=== PATIENT | male | born 1960 | race Caucasian/White ===

== ENCOUNTER 2018-10-13 05:17 | Emergency (ER) | payer BC, OTHER ==
[2018-10-13] MEDS ORDERED: Sodium Chloride 0.9% 10 ML Syringe FLUSH PRN (05:34)
--- NOTE | 2018-10-13 05:42 | EDM.PDOC ---
<Calderon Kim - Last Filed: 10/13/18 09:07> ED HPI GENERAL MEDICAL PROBLEM - General Stated Complaint: ABD PAIN Time Seen by Provider: 10/13/18 05:17 - Related Data Allergies Allergy/AdvReac Type Severity Reaction Status Date / Time morphine Allergy Cannot Verified 10/13/18 05:38 Remember Home Meds: Home Meds Hydrocodone/Acetaminophen [Hydrocodon-Acetaminophen 5-325] 1 each PO Q4HR PRN # 16 tablet 10/13/18 [Rx] Course - Vital Signs Text/Narrative:: Repeat history and abdominal exam patient is alert, stoic, states he had normally 2 bowel movements to 3 bowel movements a day without have one yesterday. He had an episode of pain Parfait 6- 7 years ago similar to this. At that time 19 excessive fatty foods. He did not have fatty foods yesterday. Patient denies fever. Just before the CAT scan was to be done patient vomited the contrast. She denies fever. 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 Abdominal exam bowel sounds normal. No distention, he has a variable clinical response to evaluation for peritonitis initially: Carnett sign was negative -most of the abdominal pain occurred with sitting up and the rectus abdominal muscles were tender. and he had moderate guarding upper quadrants. Then repeat examination demonstrated mild rebound bilateral lower quadrants. No heel tap rebound noted. No CVA percussion tenderness. Genital exam negative. No evidence for hernia. [address] reading: Last Recorded V/S: Last Vital Signs Temp 36.3 C 10/13/18 07:52 Pulse 63 10/13/18 09:25 Resp 18 10/13/18 09:25 BP 118/67 10/13/18 09:25 Pulse Ox 100 10/13/18 09:25 - Orders/Labs/Meds Labs: Laboratory Tests 10/13/18 10/13/18 10/13/18 Range/Units 05:46 05:46 05:46 WBC 9.9 (4.5-12.0) X10-3/uL RBC 4.16 L (4.30-5.75) x10(6)uL Hgb 12.8 (11.5-15.5) g/dL Hct 37.4 (30.0-51.3) % MCV 90.0 (80-96) fL MCH 30.8 (27.7-33.6) pg MCHC 34.2 (32.2-35.4) g/dL RDW 13.2 (11.5-15.5) % Plt Count 232 (125-369) X10(3)uL MPV 8.4 (7.4-10.4) fL Neut % (Auto) 83.2 H (46-82) % Lymph % (Auto) 10.1 L (13-37) % [place] % (Auto) 4.4 (4-12) % Eos % (Auto) 2 (1.0-5.0) % Baso % (Auto) 0 (0-2) % Neut # (Auto) 8.3 (1.6-8.3) # Lymph # (Auto) 1.0 (0.6-5.0) # [place] # (Auto) 0.4 (0.0-1.3) # Eos # (Auto) 0.2 (0.0-0.8) # Baso # (Auto) 0.0 (0.0-0.2) # PT 9.9 (8.7-11.1) INR 1.02 (0.89-1.13) Sodium 141 (135-145) mmol/L Potassium 3.9 (3.5-5.3) mmol/L Chloride 103 (100-110) mmol/L Carbon Dioxide 30 (21-32) mmol/L BUN 13 (7-18) mg/dL Creatinine 1.3 (0.70-1.30) mg/dL Est Cr Clr Drug Dosing 57.26 mL/min Estimated GFR (MDRD) 57 L (>60) BUN/Creatinine Ratio 10.0 (9-20) Glucose 170 H (80-116) mg/dL Lactic Acid (0.4-2.2) mmol/L Calcium 8.8 (8.6-10.2) mg/dL Total Bilirubin 0.6 (0.1-1.3) mg/dL Direct Bilirubin 0.16 (0.10-0.20) mg/dL AST 17 (5-25) IU/L ALT 20 (12-36) U/L Alkaline Phosphatase 84 (56-112) IU/L Total Protein 7.5 (6.0-8.0) g/dL Albumin 3.7 (3.5-5.2) g/dL Amylase 61 (25-115) U/L 10/13/18 Range/Units 08:05 WBC (4.5-12.0) X10-3/uL RBC (4.30-5.75) x10(6)uL Hgb (11.5-15.5) g/dL Hct (30.0-51.3) % MCV (80-96) fL MCH (27.7-33.6) pg MCHC (32.2-35.4) g/dL RDW (11.5-15.5) % Plt Count (125-369) X10(3)uL MPV (7.4-10.4) fL Neut % (Auto) (46-82) % Lymph % (Auto) (13-37) % [place] % (Auto) (4-12) % Eos % (Auto) (1.0-5.0) % Baso % (Auto) (0-2) % Neut # (Auto) (1.6-8.3) # Lymph # (Auto) (0.6-5.0) # [place] # (Auto) (0.0-1.3) # Eos # (Auto) (0.0-0.8) # Baso # (Auto) (0.0-0.2) # PT (8.7-11.1) INR (0.89-1.13) Sodium (135-145) mmol/L Potassium (3.5-5.3) mmol/L Chloride (100-110) mmol/L Carbon Dioxide (21-32) mmol/L BUN (7-18) mg/dL Creatinine (0.70-1.30) mg/dL Est Cr Clr Drug Dosing mL/min Estimated GFR (MDRD) (>60) BUN/Creatinine Ratio (9-20) Glucose (80-116) mg/dL Lactic Acid 0.7 (0.4-2.2) mmol/L Calcium (8.6-10.2) mg/dL Total Bilirubin (0.1-1.3) mg/dL Direct Bilirubin (0.10-0.20) mg/dL AST (5-25) IU/L ALT (12-36) U/L Alkaline Phosphatase (56-112) IU/L Total Protein (6.0-8.0) g/dL Albumin (3.5-5.2) g/dL Amylase (25-115) U/L Meds: Medications Discontinued Medications Generic Name Dose Route Start Last Admin Trade Name Freq PRN Reason Stop Dose Admin Diatrizoate Meglum/Diatrizoate Sod 30 ml 10/13/18 07:15 10/13/18 07:23 Gastrografin 37% PO 15 ml . DIRECTED YUAN Administration Hydromorphone HCl 0.5 mg 10/13/18 05:47 10/13/18 06:03 Dilaudid IVPUSH 10/13/18 05:48 0.5 mg ONETIME STA Administration Sodium Chloride 1,000 mls @ 999 mls/hr 10/13/18 06:12 10/13/18 06:18 Normal Saline IV 10/13/18 07:12 999 mls/hr .BOLUS ONE Administration Sodium Chloride 1,000 mls @ 999 mls/hr 10/13/18 07:43 10/13/18 07:44 Normal Saline IV 10/13/18 08:43 999 mls/hr .BOLUS ONE Administration Iopamidol 75 ml 10/13/18 07:13 10/13/18 07:23 Isovue-370 (76%) IV 10/13/18 07:14 75 ml ONETIME ONE Administration Ondansetron HCl 8 mg 10/13/18 06:59 10/13/18 07:02 Zofran IVPUSH 10/13/18 07:00 8 mg ONETIME ONE Administration Sodium Chloride 10 ml 10/13/18 05:34 10/13/18 06:03 Saline Flush FLUSH 10 ml ASDIRECTED PRN Administration Keep Vein Open Departure - Departure Time of Disposition: 07:50 (CAT scan reveals an ileitis with thickening of the ileal wall very suggestive of Crohn's. Further discussion patient his maternal grandfather had Crohn's. Patient's pain 03/24. Reexamination of the abdomen he has verbal response to outpatient but most notable moderated rebound and guarding noted. No history of diarrhea. His seventh usually 2-3 stools a day in the morning but he did not have that today. Patient's status was discussed with Dr. Geri Burris. My inclination is to admt the patient to observation but deferred to Dr. Burris discretion. After patient was seen by Dr. Burris, consultation obtainedwith Dr Smalls, patient did not want this to the hospital. Colonoscopy to be arranged another date. Recent dispensed pain medicines and follow-up with Dr. Johnson.Hospital currently not available for 2 weeks. If in the interval patient has problems to be seen by Dr. Burris gradually increase diet as tolerated. Forego using budesonide until diaagnosis of Crohn"s is made. Lactate was normal which just no immediate critical obstruction or abnormality) Disposition: Home, Self-Care 01 Condition: Fair Clinical Impression: Crohn's disease involving terminal ileum Abdominal pain Qualifiers: Abdominal location: generalized Qualified Code(s): R10.84 - Generalized abdominal pain - Discharge Information *PRESCRIPTION DRUG MONITORING PROGRAM REVIEWED*: Not Applicable *COPY OF PRESCRIPTION DRUG MONITORING REPORT IN PATIENT WU: Not Applicable Prescriptions: Hydrocodone/Acetaminophen [Hydrocodon-Acetaminophen 5-325] 1 each PO Q4HR PRN # 16 tablet PRN Reason: Pain Instructions: Ondansetron injection, Hydromorphone injection, Abdominal Pain, Adult, [id number] Referrals: Camden Child MD [Primary Care Provider] - Forms: ED Department Discharge Additional Instructions: Follow-up with Dr. Child in 2 weeks at clinic, if he is not available to see Dr. Burris. Vicodin for pain as needed. Gradually increase your diet as tolerated. <Tj Fine - Last Filed: 10/14/18 07:47> ED HPI GENERAL MEDICAL PROBLEM - General Source of Information: Reports: Patient History Limitations: Reports: No Limitations - History of Present Illness INITIAL COMMENTS - FREE TEXT/NARRATIVE: 58 y.o.w.m came to the ed this am because of sudden onset of abd. pain (02/22) at 3 am. located at his periumbilical area. H/O bilateral inguinal hernia repair > 17 years ago. No trauma, Last BM last night, nl, no blood in stool. No dysuria, No H/o enlarged prostate, No N/V, no C/P no other acute medical issues BP 137/77 RR 18 Pulse ox 100% on RA Temp 36.7 Pulse 87 Onset Date: 10/13/18 Onset Time: 03:00 Duration: Hour(s):, Getting Worse, Intermittent Location: Reports: Abdomen (periumbilical) Quality: Reports: Ache, Dull, Pressure, Stabbing, Throbbing Severity: Moderate Improves with: Reports: Rest Worsens with: Reports: Movement Context: Reports: Other mid lower abd Pain Score (Numeric/FACES): 6 ED ROS GENERAL - Review of Systems Review Of Systems: See Below Constitutional: Reports: No Symptoms HEENT: Reports: No Symptoms Respiratory: Reports: No Symptoms Cardiovascular: Reports: No Symptoms Endocrine: Reports: No Symptoms GI/Abdominal: Reports: Abdominal Pain : Reports: No Symptoms Musculoskeletal: Reports: No Symptoms Skin: Reports: No Symptoms Neurological: Reports: No Symptoms Psychiatric: Reports: No Symptoms Hematologic/Lymphatic: Reports: No Symptoms Immunologic: Reports: No Symptoms ED EXAM, GI/ABD - Physical Exam Exam: See Below Exam Limited By: No Limitations General Appearance: Alert, WD/WN, Moderate Distress Eyes: Bilateral: Normal Appearance Ears: Normal External Exam Nose: Normal Inspection, Normal Mucosa Throat/Mouth: Normal Voice, No Airway Compromise, Other (poor dentition) Head: Atraumatic, Normocephalic Neck: Normal Inspection, Supple, Non-Tender, Full Range of Motion Respiratory/Chest: No Respiratory Distress, Lungs Clear, Normal Breath Sounds, No Accessory Muscle Use, Chest Non-Tender Cardiovascular: Normal Peripheral Pulses, Regular Rate, Rhythm, No Edema, No Gallop, No Rub GI/Abdominal Exam: Guarding, Rigid, Rebound, Tender, Abnormal Bowel Sounds (Male) Exam: No Hernia Rectal (Males) Exam: Deferred Back Exam: Normal Inspection, Full Range of Motion Extremities: Normal Inspection, Normal Range of Motion Neurological: Alert, Oriented, CN II-XII Intact, Normal Cognition, Normal Gait Psychiatric: Normal Affect, Normal Mood Skin Exam: Warm, Dry, Intact, Normal Color, No Rash Lymphatic: No Adenopathy Course - Vital Signs Text/Narrative:: 58 y.o.w.m came to the ed this am because of sudden onset of abd. pain (02/22) at 3 am. located at his periumbilical area. H/O bilateral inguinal hernia repair > 17 years ago. No trauma. Last BM last night, nl consistency, no blood in stool, stool was soft. No dysuria, No H/o enlarged prostate, No N/V, no C/P no other acute medical issues BP 137/77 RR 18 Pulse ox 100% on RA Temp 36.7 Pulse 87 PE: WNWD W M with periumbilical pain with guarding and rebound, severely diminished BS, Bladder scanner showed 18 cc of urine in his bladder Imaging: Abd flat/upright: Nonspecific BGP, CT abd/pelvis with I.V/PO contrast : pending Labs: CBC nl except RBC 4.16, Neutros 83.5 %, BMP: N: except GFR 57 Glc 130 UA : Pending Impression: Periumbilical pain, guarding, rigidity and rebound Tx: NS. Dilaudid, Zofran Reexam: Improved 7 am: Pt was signed out to Dr. Kim due to shift changes pending CT abdomen/pelvis and UA results Last Recorded V/S: Last Vital Signs Temp 36.3 C 10/13/18 07:52 Pulse 63 10/13/18 09:25 Resp 18 10/13/18 09:25 BP 118/67 10/13/18 09:25 Pulse Ox 100 10/13/18 09:25 - Orders/Labs/Meds Labs: Laboratory Tests 10/13/18 10/13/18 10/13/18 Range/Units 05:46 05:46 05:46 WBC 9.9 (4.5-12.0) X10-3/uL RBC 4.16 L (4.30-5.75) x10(6)uL Hgb 12.8 (11.5-15.5) g/dL Hct 37.4 (30.0-51.3) % MCV 90.0 (80-96) fL MCH 30.8 (27.7-33.6) pg MCHC 34.2 (32.2-35.4) g/dL RDW 13.2 (11.5-15.5) % Plt Count 232 (125-369) X10(3)uL MPV 8.4 (7.4-10.4) fL Neut % (Auto) 83.2 H (46-82) % Lymph % (Auto) 10.1 L (13-37) % [place] % (Auto) 4.4 (4-12) % Eos % (Auto) 2 (1.0-5.0) % Baso % (Auto) 0 (0-2) % Neut # (Auto) 8.3 (1.6-8.3) # Lymph # (Auto) 1.0 (0.6-5.0) # [place] # (Auto) 0.4 (0.0-1.3) # Eos # (Auto) 0.2 (0.0-0.8) # Baso # (Auto) 0.0 (0.0-0.2) # PT 9.9 (8.7-11.1) INR 1.02 (0.89-1.13) Sodium 141 (135-145) mmol/L Potassium 3.9 (3.5-5.3) mmol/L Chloride 103 (100-110) mmol/L Carbon Dioxide 30 (21-32) mmol/L BUN 13 (7-18) mg/dL Creatinine 1.3 (0.70-1.30) mg/dL Est Cr Clr Drug Dosing 57.26 mL/min Estimated GFR (MDRD) 57 L (>60) BUN/Creatinine Ratio 10.0 (9-20) Glucose 170 H (80-116) mg/dL Lactic Acid (0.4-2.2) mmol/L Calcium 8.8 (8.6-10.2) mg/dL Total Bilirubin 0.6 (0.1-1.3) mg/dL Direct Bilirubin 0.16 (0.10-0.20) mg/dL AST 17 (5-25) IU/L ALT 20 (12-36) U/L Alkaline Phosphatase 84 (56-112) IU/L Total Protein 7.5 (6.0-8.0) g/dL Albumin 3.7 (3.5-5.2) g/dL Amylase 61 (25-115) U/L 10/13/18 Range/Units 08:05 WBC (4.5-12.0) X10-3/uL RBC (4.30-5.75) x10(6)uL Hgb (11.5-15.5) g/dL Hct (30.0-51.3) % MCV (80-96) fL MCH (27.7-33.6) pg MCHC (32.2-35.4) g/dL RDW (11.5-15.5) % Plt Count (125-369) X10(3)uL MPV (7.4-10.4) fL Neut % (Auto) (46-82) % Lymph % (Auto) (13-37) % [place] % (Auto) (4-12) % Eos % (Auto) (1.0-5.0) % Baso % (Auto) (0-2) % Neut # (Auto) (1.6-8.3) # Lymph # (Auto) (0.6-5.0) # [place] # (Auto) (0.0-1.3) # Eos # (Auto) (0.0-0.8) # Baso # (Auto) (0.0-0.2) # PT (8.7-11.1) INR (0.89-1.13) Sodium (135-145) mmol/L Potassium (3.5-5.3) mmol/L Chloride (100-110) mmol/L Carbon Dioxide (21-32) mmol/L BUN (7-18) mg/dL Creatinine (0.70-1.30) mg/dL Est Cr Clr Drug Dosing mL/min Estimated GFR (MDRD) (>60) BUN/Creatinine Ratio (9-20) Glucose (80-116) mg/dL Lactic Acid 0.7 (0.4-2.2) mmol/L Calcium (8.6-10.2) mg/dL Total Bilirubin (0.1-1.3) mg/dL Direct Bilirubin (0.10-0.20) mg/dL AST (5-25) IU/L ALT (12-36) U/L Alkaline Phosphatase (56-112) IU/L Total Protein (6.0-8.0) g/dL Albumin (3.5-5.2) g/dL Amylase (25-115) U/L Meds: Medications Discontinued Medications Generic Name Dose Route Start Last Admin Trade Name Freq PRN Reason Stop Dose Admin Diatrizoate Meglum/Diatrizoate Sod 30 ml 10/13/18 07:15 10/13/18 07:23 Gastrografin 37% PO 15 ml . DIRECTED YUAN Administration Hydromorphone HCl 0.5 mg 10/13/18 05:47 10/13/18 06:03 Dilaudid IVPUSH 10/13/18 05:48 0.5 mg ONETIME STA Administration Sodium Chloride 1,000 mls @ 999 mls/hr 10/13/18 06:12 10/13/18 06:18 Normal Saline IV 10/13/18 07:12 999 mls/hr .BOLUS ONE Administration Sodium Chloride 1,000 mls @ 999 mls/hr 10/13/18 07:43 10/13/18 07:44 Normal Saline IV 10/13/18 08:43 999 mls/hr .BOLUS ONE Administration Iopamidol 75 ml 10/13/18 07:13 10/13/18 07:23 Isovue-370 (76%) IV 10/13/18 07:14 75 ml ONETIME ONE Administration Ondansetron HCl 8 mg 10/13/18 06:59 10/13/18 07:02 Zofran IVPUSH 10/13/18 07:00 8 mg ONETIME ONE Administration Sodium Chloride 10 ml 10/13/18 05:34 10/13/18 06:03 Saline Flush FLUSH 10 ml ASDIRECTED PRN Administration Keep Vein Open
[2018-10-13] MEDS ORDERED: HYDROmorphone 2 MG/ML SDV IVPUSH STA (05:47)
[2018-10-13] MEDS ORDERED: Sodium Chloride 0.9% 1,000 ML IV ONE ×2 (06:12→07:43)
[2018-10-13] MEDS ORDERED: Ondansetron 4 MG/2 ML SDV IVPUSH ONE (06:59)
[2018-10-13] MEDS ORDERED: Iopamidol 755 Mg/ML 75 ML Bottle IV ONE (07:13)
[2018-10-13] MEDS ORDERED: Diatrizoate Meglumine/Diatrizoate Sodium 37% 30 ML Bottle PO SCH (07:15)
--- NOTE | 2018-10-13 09:07 | PCM.CONS ---
H&P History of Present Illness - General Date of Service: 10/13/18 Source of Information: Patient - History of Present Illness Initial Comments - Free Text/Narative: 58 yo wm who awoke with a complaint of lower abd pain. [place] bloated as well as some pain. No fever chills, usually has a bm in the am but did not do so today. CT scan ? Crohn's in terminal ileum. Denies diarrhea as well. Has a family hx of Crohns with grandfather. mid lower abd Pain Score (Numeric/FACES): 3 - Related Data Allergies/Adverse Reactions: Allergies Allergy/AdvReac Type Severity Reaction Status Date / Time morphine Allergy Cannot Verified 10/13/18 05:38 Remember Home Medications: Home Meds NK [No Known Home Meds] 10/13/18 [History] Past Medical History - Past Health History Medical/Surgical History: Denies Medical/Surgical History - Past Surgical History GI Surgical History: Reports: Hernia, Inguinal (bilateral) Musculoskeletal Surgical History: Reports: Shoulder Surgery Social & Family History - Family History Family Medical History: Noncontributory - Tobacco Use Smoking Status *Q: Former Smoker Used Tobacco, but Quit: Yes Month/Year Tobacco Last Used: 360 - Caffeine Use Caffeine Use: Reports: None - Recreational Drug Use Recreational Drug Use: No H&P Review of Systems - Review of Systems: Review Of Systems: See Below General: Denies: Fever, Chills Pulmonary: Reports: No Symptoms Cardiovascular: Reports: No Symptoms Gastrointestinal: Reports: Abdominal Pain. Denies: Constipation, Diarrhea, Stool Incontinence, Vomiting Genitourinary: Reports: No Symptoms Musculoskeletal: Reports: No Symptoms Skin: Reports: No Symptoms Exam - Exam Exam: See Below - Vital Signs Vital Signs: Last Vital Signs Temp 97.4 F 10/13/18 07:52 Pulse 58 L 10/13/18 07:52 Resp 18 10/13/18 07:52 BP 123/68 10/13/18 07:52 Pulse Ox 99 10/13/18 07:52 Weight: 68.039 kg - Exam General: Alert, Oriented HEENT: PERRLA, Conjunctiva Clear, EOMI, Posterior Pharynx Clear, TMs Clear Lungs: Clear to Auscultation, Normal Respiratory Effort Cardiovascular: Regular Rate, Regular Rhythm GI/Abdominal Exam: Normal Bowel Sounds, Soft, Tender (very mild tenderness in lower abdomne ) Back Exam: Normal Inspection, Full Range of Motion - Patient Data Lab Results Last 24 hrs: Laboratory Results - last 24 hr 10/13/18 10/13/18 10/13/18 Range/Units 05:46 05:46 05:46 WBC 9.9 (4.5-12.0) X10-3/uL RBC 4.16 L (4.30-5.75) x10(6)uL Hgb 12.8 (11.5-15.5) g/dL Hct 37.4 (30.0-51.3) % MCV 90.0 (80-96) fL MCH 30.8 (27.7-33.6) pg MCHC 34.2 (32.2-35.4) g/dL RDW 13.2 (11.5-15.5) % Plt Count 232 (125-369) X10(3)uL MPV 8.4 (7.4-10.4) fL Neut % (Auto) 83.2 H (46-82) % Lymph % (Auto) 10.1 L (13-37) % [place] % (Auto) 4.4 (4-12) % Eos % (Auto) 2 (1.0-5.0) % Baso % (Auto) 0 (0-2) % Neut # (Auto) 8.3 (1.6-8.3) # Lymph # (Auto) 1.0 (0.6-5.0) # [place] # (Auto) 0.4 (0.0-1.3) # Eos # (Auto) 0.2 (0.0-0.8) # Baso # (Auto) 0.0 (0.0-0.2) # PT 9.9 (8.7-11.1) INR 1.02 (0.89-1.13) Sodium 141 (135-145) mmol/L Potassium 3.9 (3.5-5.3) mmol/L Chloride 103 (100-110) mmol/L Carbon Dioxide 30 (21-32) mmol/L BUN 13 (7-18) mg/dL Creatinine 1.3 (0.70-1.30) mg/dL Est Cr Clr Drug Dosing 57.26 mL/min Estimated GFR (MDRD) 57 L (>60) BUN/Creatinine Ratio 10.0 (9-20) Glucose 170 H (80-116) mg/dL Lactic Acid (0.4-2.2) mmol/L Calcium 8.8 (8.6-10.2) mg/dL Total Bilirubin 0.6 (0.1-1.3) mg/dL Direct Bilirubin 0.16 (0.10-0.20) mg/dL AST 17 (5-25) IU/L ALT 20 (12-36) U/L Alkaline Phosphatase 84 (56-112) IU/L Total Protein 7.5 (6.0-8.0) g/dL Albumin 3.7 (3.5-5.2) g/dL Amylase 61 (25-115) U/L 10/13/18 Range/Units 08:05 WBC (4.5-12.0) X10-3/uL RBC (4.30-5.75) x10(6)uL Hgb (11.5-15.5) g/dL Hct (30.0-51.3) % MCV (80-96) fL MCH (27.7-33.6) pg MCHC (32.2-35.4) g/dL RDW (11.5-15.5) % Plt Count (125-369) X10(3)uL MPV (7.4-10.4) fL Neut % (Auto) (46-82) % Lymph % (Auto) (13-37) % [place] % (Auto) (4-12) % Eos % (Auto) (1.0-5.0) % Baso % (Auto) (0-2) % Neut # (Auto) (1.6-8.3) # Lymph # (Auto) (0.6-5.0) # [place] # (Auto) (0.0-1.3) # Eos # (Auto) (0.0-0.8) # Baso # (Auto) (0.0-0.2) # PT (8.7-11.1) INR (0.89-1.13) Sodium (135-145) mmol/L Potassium (3.5-5.3) mmol/L Chloride (100-110) mmol/L Carbon Dioxide (21-32) mmol/L BUN (7-18) mg/dL Creatinine (0.70-1.30) mg/dL Est Cr Clr Drug Dosing mL/min Estimated GFR (MDRD) (>60) BUN/Creatinine Ratio (9-20) Glucose (80-116) mg/dL Lactic Acid 0.7 (0.4-2.2) mmol/L Calcium (8.6-10.2) mg/dL Total Bilirubin (0.1-1.3) mg/dL Direct Bilirubin (0.10-0.20) mg/dL AST (5-25) IU/L ALT (12-36) U/L Alkaline Phosphatase (56-112) IU/L Total Protein (6.0-8.0) g/dL Albumin (3.5-5.2) g/dL Amylase (25-115) U/L Result Diagrams: 10/13/18 05:46 10/13/18 05:46 Ashok Results Last 24 hrs: Microbiology 10/13/18 08:55 Stool Occult Blood (ASHOK) - Final Stool / Feces NEGATIVE OCCULT BLOOD Consult PN Assessment/Plan Procedures: Procedures ASSAY OF AMYLASE (09/14/13) ASSAY OF ETHANOL (09/14/13) BLOOD TYPING SEROLOGIC ABO (09/14/13) BLOOD TYPING SEROLOGIC RH(D) (09/14/13) CHEST X-RAY 1 VIEW FRONTAL (09/14/13) COMPLETE CBC W/AUTO DIFF WBC (09/14/13) COMPREHEN METABOLIC PANEL (09/14/13) CT HEAD/BRAIN W/O DYE (09/14/13) CT NECK SPINE W/O DYE (09/14/13) EMERGENCY DEPT VISIT (09/14/13) OCCULT BLD FECES 1-3 TESTS (09/14/13) PROTHROMBIN TIME (09/14/13) RBC ANTIBODY SCREEN (09/14/13) ROUTINE VENIPUNCTURE (09/14/13) THROMBOPLASTIN TIME PARTIAL (09/14/13) URINALYSIS AUTO W/O SCOPE (09/14/13) X-RAY EXAM OF LOWER LEG (09/14/13) X-RAY EXAM OF PELVIS (09/14/13) (1) Abdominal pain SNOMED Code(s): 43492398 Code(s): R10.9 - UNSPECIFIED ABDOMINAL PAIN Current Visit: Yes Qualifiers: Abdominal location: generalized Qualified Code(s): R10.84 - Generalized abdominal pain Problem List Initiated/Reviewed/Updated: Yes Plan: will need a c scope and it appears that it could be set up as an outpt. does not appear to need to be admitted. have follow up to set up scope as an outpt.
== END 2018-10-13 09:31 | disposition home or self-care (01) ==
LOC: FB.ED 05:17 → UNDOADMOB 08:18 → FB.MS 08:18 → FB.ED 09:31
DX: R10.33 Periumbilical pain (principal); R10.84 Generalized abdominal pain
CPT/HCPCS: 36415; 74019; 74177; 80048; 80076; 82150; 82272; 83605; 85025; 85610; 96361; 96374; 96375; 99285; J1170; J2405; J7030; Q9963; Q9967

== ENCOUNTER 2018-10-30 07:18 | Day surgery (SDC) | payer BC ==
[~2018-10-30 07:18] MED LIST: Lactated Ringers 1,000 ML IV SCH
[2018-10-30] MEDS ORDERED: Lidocaine 1% 30 ML SDV ONE (07:19)
[2018-10-30] MEDS ORDERED: Ondansetron 4 MG/2 ML SDV IVPUSH ONE (07:19)
[2018-10-30] MEDS ORDERED: Propofol 200 MG/20 ML SDV IV ONE (07:19)
--- NOTE | 2018-10-30 10:04 | PCM.OPNOTE ---
- General Post-Op/Procedure Note Date of Surgery/Procedure: 10/30/18 Operative Procedure(s): c scope with bx Findings: ascending colon polyp normal appearing terminal ileum Pre Op Diagnosis: hx of abdominal pain Post-Op Diagnosis: ascending colon polyp. normal appearing terminal ileum Anesthesia Technique: MAC Primary Surgeon: Chao Smalls Anesthesia Provider: Parmjit Adorno Pathology: ascending colon polyp Complications: None Condition: Good Free Text/Narrative:: see dictation
--- NOTE | 2018-10-30 13:00 | OR ---
DATE OF OPERATION: 10/30/2018 SURGEON: Chao Smalls MD PROCEDURE PERFORMED: Colonoscopy with cold forceps biopsy. PREOPERATIVE DIAGNOSES: History of lower abdominal pain and questionable enteritis on CT scan. POSTOPERATIVE DIAGNOSES: Normal-appearing terminal ileum and polyp of the ascending colon. INDICATIONS FOR PROCEDURE: This is a 58-year-old white male who presented to the emergency department last week with those noted complaints. Subsequent findings were noted on CT scan. He was offered and accepted a colonoscopy. DESCRIPTION OF OPERATION: After an excellent IV sedation was administered, digital rectal exam was performed. No marked abnormality was noted. Flexible colonoscope was inserted and advanced to the cecum without difficulty. The prep was excellent. The following findings were noted. The terminal ileum was intubated. No marked abnormality was noted. Biopsies were taken due to the CT scan findings. Ascending colon, small polypoid lesion biopsied with cold biopsy forceps and sent for permanent. Transverse colon, unremarkable. Descending colon, unremarkable. Sigmoid and rectum, unremarkable. The colon was deflated as the scope was removed. The patient tolerated the procedure well and was taken to recovery in good condition. Results by letter. /[id number] /MODL
== END 2018-10-30 11:00 | disposition home or self-care (01) ==
LOC: FB.SDS 07:18
PROVIDERS: ATTEND Surgery
DX: R10.30 Lower abdominal pain, unspecified (principal); D12.2 Benign neoplasm of ascending colon; K63.5 Polyp of colon; Z87.891 Personal history of nicotine dependence; Z79.899 Other long term (current) drug therapy; Z88.5 Allergy status to narcotic agent
CPT/HCPCS: 45380; 88305; J2001; J2405; J2704; J7120

== ENCOUNTER 2019-01-29 18:42 | Emergency (ER) | payer BC ==
--- NOTE | 2019-01-29 19:06 | EDM.PDOC ---
ED HPI GENERAL MEDICAL PROBLEM - General Chief Complaint: Chest Pain Stated Complaint: CHEST PAIN Time Seen by Provider: 01/29/19 19:02 Source of Information: Reports: Patient History Limitations: Reports: No Limitations - History of Present Illness INITIAL COMMENTS - FREE TEXT/NARRATIVE: 58-year-old male who reports at approximately 1 to 1:30 PM today while he was at work he began to have pain in his left chest that was a sharp pain that was worse with taking a deep breath and with movement of his left arm. He doesn't remember any particular injury prior to this, however, he does do a lot of heavy work with his arms and the pain varied anywhere from a 4-6/10 depending on what he was doing. The pain, however, has been continually present since its onset at 1 to 1:30 PM today. He had no shortness of breath. He's had no cough. He has had no nausea or vomiting. He's had no trouble breathing. No hemoptysis. No fevers or chills. No antecedent problems. He does have chronic left shoulder pain and has had that for number of years and it seems to be connected to the chest pain is having today. There are no other associated signs or symptoms. There are no other modifying factors. 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 CLOSED FX OF RIGHT FIBULA. - Past Surgical History GI Surgical History: Reports: Colonoscopy, Hernia Repair/Other (Bilateral inguinal hernia repairs) Musculoskeletal Surgical History: Reports: Shoulder Surgery (Left) Social & Family History - Family History Cardiac: Reports: CAD, [place] Other Cardiac Family History: History of MIs in multiple male family members on his father's side including his father. 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) ED ROS GENERAL - Review of Systems Review Of Systems: See Below Constitutional: Reports: No Symptoms HEENT: Reports: No Symptoms Respiratory: Reports: No Symptoms Cardiovascular: Reports: Chest Pain, Other (As above) GI/Abdominal: Reports: No Symptoms : Reports: No Symptoms Musculoskeletal: Reports: Shoulder Pain (Left) Skin: Reports: No Symptoms Neurological: Reports: No Symptoms Hematologic/Lymphatic: Reports: No Symptoms Immunologic: Reports: No Symptoms ED EXAM, GENERAL - Physical Exam Exam: See Below Exam Limited By: No Limitations General Appearance: Alert, WD/WN, Moderate Distress Eye Exam: Bilateral Eye: EOMI, Normal Inspection, PERRL Ears: Normal External Exam, Hearing Grossly Normal Nose: Normal Inspection, Normal Mucosa Throat/Mouth: Normal Inspection, Normal Oropharynx, Normal Voice, No Airway Compromise Head: Atraumatic, Normocephalic Neck: Normal Inspection, Supple, Non-Tender, Full Range of Motion Respiratory/Chest: No Respiratory Distress, Lungs Clear, Normal Breath Sounds, No Accessory Muscle Use, Other (Tender to palpation over the left chest that completely reproduces his pain.) Cardiovascular: Normal Peripheral Pulses, Regular Rate, Rhythm, No JVD Peripheral Pulses: 2+: Radial (L), Radial (R) GI/Abdominal: Normal Bowel Sounds, Soft, Non-Tender, No Mass Back Exam: Normal Inspection Extremities: No Pedal Edema, Normal Capillary Refill, Other (Tenderness in left shoulder with palpation and movement.) Neurological: Alert, CN II-XII Intact, Normal Cognition, No Motor/Sensory Deficits Psychiatric: Normal Affect Skin Exam: Warm, Dry, Intact, Normal Color, No Rash EKG INTERPRETATION EKG Date: 01/29/19 Time: 18:47 Rhythm: NSR Rate (Beats/Min): 68 Sayre: LAD-Left Sayre Deviation P-Wave: Present QRS: Normal ST-T: Other (Converted T's in 3 and flat and aVF. Nonspecific ST-T changes) QT: Normal Comparison: NA - No Prior EKG Course - Vital Signs Last Recorded V/S: Last Vital Signs Temp 36.6 C 01/29/19 18:50 Pulse 67 01/29/19 18:50 Resp 15 01/29/19 18:50 BP 145/86 H 01/29/19 18:50 Pulse Ox 100 01/29/19 18:50 - Orders/Labs/Meds Orders: Active Orders 24 hr Category Date Time Status CXR [Chest 2V] [CR] Stat Exams 01/29/19 19:21 Taken Sodium Chloride 0.9% [Saline Flush] Med 01/29/19 19:21 Active 10 ml FLUSH ASDIRECTED PRN Peripheral IV Insertion Adult [OM.PC] Routine Oth 01/29/19 19:21 Ordered EKG 12 Lead [EK] Routine Ther 01/29/19 19:21 Ordered Medication Orders Sodium Chloride (Saline Flush) 10 ml FLUSH ASDIRECTED PRN PRN Reason: Keep Vein Open Last Admin: 01/29/19 19:30 Dose: 10 ml Labs: Laboratory Tests 01/29/19 01/29/19 01/29/19 Range/Units 19:15 19:15 19:15 WBC 7.3 (4.5-12.0) X10-3/uL RBC 4.43 (4.30-5.75) x10(6)uL Hgb 13.5 (13.5-17.8) g/dL Hct 40.6 (30.0-51.3) % MCV 91.8 (80-96) fL MCH 30.6 (27.7-33.6) pg MCHC 33.3 (32.2-35.4) g/dL RDW 13.2 (11.5-15.5) % Plt Count 231 (125-369) X10(3)uL MPV 8.5 (7.4-10.4) fL Neut % (Auto) 67.4 (46-82) % Lymph % (Auto) 21.7 (13-37) % Sabine % (Auto) 7.2 (4-12) % Eos % (Auto) 3 (1.0-5.0) % Baso % (Auto) 1 (0-2) % Neut # (Auto) 4.9 (1.6-8.3) # Lymph # (Auto) 1.6 (0.6-5.0) # Sabine # (Auto) 0.5 (0.0-1.3) # Eos # (Auto) 0.2 (0.0-0.8) # Baso # (Auto) 0.1 (0.0-0.2) # PT 9.4 (8.7-11.1) INR 0.97 (0.89-1.13) APTT 25.1 (24.4-33.2) SECONDS D-Dimer, Quantitative 0.39 (0.0-0.59) mg/LFEU Sodium 142 (135-145) mmol/L Potassium 3.8 (3.5-5.3) mmol/L Chloride 103 (100-110) mmol/L Carbon Dioxide 28 (21-32) mmol/L BUN 13 (7-18) mg/dL Creatinine 1.3 (0.70-1.30) mg/dL Est Cr Clr Drug Dosing 57.26 mL/min Estimated GFR (MDRD) 57 L (>60) BUN/Creatinine Ratio 10.0 (9-20) Glucose 82 D (80-116) mg/dL Calcium 8.7 (8.6-10.2) mg/dL Total Bilirubin 0.5 (0.1-1.3) mg/dL AST 20 D (5-25) IU/L ALT 24 D (12-36) U/L Alkaline Phosphatase 83 (56-112) IU/L Troponin I (<0.017-0.056) ng/mL Total Protein 7.7 (6.0-8.0) g/dL Albumin 3.8 (3.5-5.2) g/dL Globulin 3.9 g/dL Albumin/Globulin Ratio 1.0 // Range/Units 19:15 WBC (4.5-12.0) X10-3/uL RBC (4.30-5.75) x10(6)uL Hgb (13.5-17.8) g/dL Hct (30.0-51.3) % MCV (80-96) fL MCH (27.7-33.6) pg MCHC (32.2-35.4) g/dL RDW (11.5-15.5) % Plt Count (125-369) X10(3)uL MPV (7.4-10.4) fL Neut % (Auto) (46-82) % Lymph % (Auto) (13-37) % Sabine % (Auto) (4-12) % Eos % (Auto) (1.0-5.0) % Baso % (Auto) (0-2) % Neut # (Auto) (1.6-8.3) # Lymph # (Auto) (0.6-5.0) # Sabine # (Auto) (0.0-1.3) # Eos # (Auto) (0.0-0.8) # Baso # (Auto) (0.0-0.2) # PT (8.7-11.1) INR (0.89-1.13) APTT (24.4-33.2) SECONDS D-Dimer, Quantitative (0.0-0.59) mg/LFEU Sodium (135-145) mmol/L Potassium (3.5-5.3) mmol/L Chloride (100-110) mmol/L Carbon Dioxide (21-32) mmol/L BUN (7-18) mg/dL Creatinine (0.70-1.30) mg/dL Est Cr Clr Drug Dosing mL/min Estimated GFR (MDRD) (>60) BUN/Creatinine Ratio (9-20) Glucose (80-116) mg/dL Calcium (8.6-10.2) mg/dL Total Bilirubin (0.1-1.3) mg/dL AST (5-25) IU/L ALT (12-36) U/L Alkaline Phosphatase (56-112) IU/L Troponin I 0.017 (<0.017-0.056) ng/mL Total Protein (6.0-8.0) g/dL Albumin (3.5-5.2) g/dL Globulin g/dL Albumin/Globulin Ratio Meds: Medications Generic Name Dose Route Start Last Admin Trade Name Freq PRN Reason Stop Dose Admin Sodium Chloride 10 ml 01/29/19 19:21 01/29/19 19:30 Saline Flush FLUSH 10 ml ASDIRECTED PRN Administration Keep Vein Open Discontinued Medications Generic Name Dose Route Start Last Admin Trade Name Freq PRN Reason Stop Dose Admin Aspirin 324 mg 01/29/19 19:22 01/29/19 19:33 Aspirin PO 01/29/19 19:23 324 mg ONETIME ONE Administration Ketorolac Tromethamine 30 mg 01/29/19 19:22 01/29/19 19:33 Toradol IVPUSH 01/29/19 19:23 30 mg ONETIME ONE Administration - Radiology Interpretation Free Text/Narrative:: Chest x-ray PA and lateral shows no acute disease. - Re-Assessments/Exams Free Text/Narrative Re-Assessment/Exam: 01/29/19 20:55: Patient feels much improved after the Toradol. His blood tests are reassuringly normal and his pain appears to be musculoskeletal in nature. His troponin which would represent a 6 hour post-onset chest pain level was negative. His d-dimer was negative. I will give him a note for no lifting greater than 10 pounds with his left arm for the next 3 days. Departure - Departure Time of Disposition: 21:05 Disposition: Home, Self-Care 01 Condition: Good Clinical Impression: Chest pain, musculoskeletal Instructions: Chest Wall Pain, [id number] Referrals: Camden Child MD [Primary Care Provider] - Forms: ED Department Discharge Additional Instructions: Your EKG, blood tests and chest x-ray were reassuringly normal. Your chest pain appears to be secondary to the muscles in your chest wall. You may take ibuprofen and Tylenol as needed for pain. I have given you a 10 pound weight restriction with your left arm for the next 3 days for work. Follow-up with your primary doctor this next week if you are having persisting symptoms. Back to the emergency department for trouble breathing, coughing of blood, high fever or any other concerning sign or symptom. - My Orders Last 24 Hours: My Active Orders 01/29/19 19:21 CXR [Chest 2V] [CR] Stat Sodium Chloride 0.9% [Saline Flush] 10 ml FLUSH ASDIRECTED PRN Peripheral IV Insertion Adult [OM.PC] Routine EKG 12 Lead [EK] Routine - Assessment/Plan Last 24 Hours: My Active Orders 01/29/19 19:21 CXR [Chest 2V] [CR] Stat Sodium Chloride 0.9% [Saline Flush] 10 ml FLUSH ASDIRECTED PRN Peripheral IV Insertion Adult [OM.PC] Routine EKG 12 Lead [EK] Routine
[2019-01-29] MEDS ORDERED: Sodium Chloride 0.9% 10 ML Syringe FLUSH PRN (19:21)
[2019-01-29] MEDS ORDERED: Ketorolac 30 MG/ML SDV IVPUSH ONE (19:22)
[2019-01-29] MEDS ORDERED: Aspirin 81 MG Tab.Chew PO ONE (19:22)
--- NOTE | 2019-02-01 15:20 | CR ---
INDICATION: Chest pain. CHEST: Two PA views and a lateral view of the chest were obtained, 01/29/19, and compared with 09/14/13. The heart appears to be mildly enlarged. Mild pectus excavatum deformity is noted. A staple is noted at the scapula on the left, as previously. The aorta is tortuous to a moderate degree. A definite active infiltrate or effusion was not identified. Minimal compression anteriorly is noted at a middle thoracic vertebral body, most likely old. IMPRESSION: No acute process - heart may be slightly enlarged compared with the previous examination, however. MTDD
== END 2019-01-29 21:46 | disposition home or self-care (01) ==
LOC: FB.ED 18:42
DX: R07.89 Other chest pain (principal); Z88.5 Allergy status to narcotic agent; Z87.891 Personal history of nicotine dependence
CPT/HCPCS: 36415; 71046; 80053; 84484; 85025; 85379; 85610; 85730; 93005; 96374; 99285; A9270; J1885